=== PATIENT | female | born 1980 | race Caucasian/White ===

== ENCOUNTER 2020-11-12 10:55 | Emergency (ER) | payer OTHER, SELFPAY ==
[2020-11-12 11:20] VITALS: BP 140/85; PULSE 107; RESP 18; TEMP 36.8; O2SAT 99
--- NOTE | 2020-11-12 11:43 | PC.NURSE ---
provider was at bedside to do eye exam about 1133
--- NOTE | 2020-11-12 11:47 | ED.EYEPROB ---
HPI - Eye Problem General Chief complaint: Eye Problems Stated complaint: Bilateral eye pain Source: patient and RN notes reviewed Limitations: no limitations History of Present Illness HPI Narrative: The patient- a non-smoker/nondrinker on several meds inc AODM that wears eyeglasses- presents with lid discomfort. Patient states she has a couple day history of bilateral upper> lower lid itching and swelling. She has a prior history of urticaria/allergic rash with similar presentation a couple months ago for which she was treated with antihistamines, steroid. In similar fashion today, she had the onset of ear redness and itching with some interdigital, webspace itching at the onset. No known triggers , topical preparations -but she does have a pets and dog at home ; symptoms are mild, worse with scratching, minimally better with Benadryl . No cough, SOB, wheeze , hives, photophobia, injury, discharge, red eye, contact lens use-but she had lens use months ago. Patient advised to go to eye doctor if not improved; visual acuity is poor today as she does not have her spectacles Related Data Home Medications Medication Instructions Recorded Confirmed duloxetine mg PO 11/12/20 famotidine 11/12/20 levocetirizine mg 11/12/20 liraglutide [Victoza 2-Jim] mg SUBCUT 11/12/20 meloxicam 11/12/20 metformin mg PO 11/12/20 sitagliptin [Januvia] mg 11/12/20 Allergies Allergy/AdvReac Type Severity Reaction Status Date / Time milk Allergy Intermediate Unknown Verified 11/12/20 11:27 Penicillins Allergy Rash Verified 11/12/20 11:27 Review of Systems Review of Systems: Narrative: The patient has been informed that they may have pre-hypertension or Hypertension based on a BP reading in the department. I recommend that the patient call the primary care provider listed on their discharge instructions or a physician of their choice this week to arrange follow up for further evaluation of possible pre-hypertension or Hypertension General/Constitutional: No weight loss,fever Eyes: N0: Redness,discharge Ears/Nose/Throat: No: Epistaxis,ear discharge Respiratory: Denies: Hemoptysis Gastrointestinal: No Vomiting, Bleeding-rectal Skin: No Lumps, eruption Neurologic: No Focal Weakness,Sz Hematologic: Denies: Petechiae/Purpura Psychiatric: No: Suicida ideationl All Other Systems: Reviewed and Negative PMFSH Comments At time of signature, agree with nursing past medical, surgical, social and family history. There is no relevant family history pertinent to the presenting complaint Exam Narrative: Exam Narrative: General Appearance: Well appearing, Well nourished, No distress EYE: VA 20/200, PERRLA [id number] bilateral edema, EOMI, Lens normal), Normal corneas , anterior chamber deep, no conjunctiva injection Ears: External ear normal, Auditory canal normal Nose: Normal nose, Nares clear Mouth/Throat: Normal appearing, Normal lips Neck: Supple, No adenopathy Respiratory: Airway patent, No respiratory distress Skin: Warm, Dry Neurological: A&O x3, CN II-X intact Psychiatric: Normal mood, Normal affect Course Vital Signs Vital signs: Vital Signs Temperature 98.3 F 11/12/20 11:20 Pulse Rate 107 H 11/12/20 11:20 Respiratory Rate 18 11/12/20 11:20 Blood Pressure 140/85 11/12/20 11:20 Pulse Oximetry 99 11/12/20 11:20 Temperature 98.3 F 11/12/20 11:20 Pulse Rate 107 H 11/12/20 11:20 Respiratory Rate 18 11/12/20 11:20 Blood Pressure 140/85 11/12/20 11:20 Pulse Oximetry 99 11/12/20 11:20 Discharge Plan Discharge Clinical Impression: Blepharitis Qualifiers: Blepharitis type: unspecified type Laterality: bilateral Eyelid: unspecified eyelid Qualified Code(s): H01.003 - Unspecified blepharitis right eye, unspecified eyelid Patient Disposition: Home, Self-Care Condition: Stable Instructions: Blepharitis (ED) Additional Instructions: You may use OTC preps like C
== END 2020-11-12 12:00 | disposition home or self-care (01) ==
PROVIDERS: Emergency Provider Emergency Medicine; PCP Physician Assistant
DX: H01.006 Unspecified blepharitis left eye, unspecified eyelid (principal); H01.003 Unspecified blepharitis right eye, unspecified eyelid; J45.909 Unspecified asthma, uncomplicated; E11.9 Type 2 diabetes mellitus without complications
CPT/HCPCS: 99213; A9270; G0463

== ENCOUNTER → 2020-12-10 15:17 | Outpatient (CLI) | payer OTHER, SELFPAY ==
--- NOTE | ~2020-12-10 | MM_ITS ---
EXAMINATION: MM screening gregoria BI w loren HISTORY: Screening mammogram TECHNIQUE: Craniocaudal and mediolateral oblique 3-D tomosynthesis images were obtained and synthetic 2-D images were generated. CAD analysis was submitted and interpreted. COMPARISON: None, baseline BREAST PARENCHYMAL COMPOSITION: There are scattered areas of fibroglandular density. FINDINGS: RIGHT BREAST: An asymmetry is present in the subareolar aspect of the right breast on the mediolatera l oblique view. LEFT BREAST: There is no evidence of suspicious mass, calcification, or architectural distortion to s uggest malignancy. IMPRESSION: 1. Right breast asymmetry 2. Additional mammographic views and possible breast ultrasound are recommended to evaluate for malig jarrell and establish a baseline given that this is the first mammographic examination. BI-RADS Category 0: Incomplete: Needs additional imaging evaluation. Reviewed, dictated and finalized at location A. IMPRESSION: 1. Right breast asymmetry 2. Additional mammographic views and possible breast ultrasound are recommended to evaluate for malignancy and establish a baseline given that this is the fir st mammographic examination. BI-RADS Category 0: Incomplete: Needs additional imaging evaluation.
== END ==
PROVIDERS: PCP Physician Assistant; Visit Provider Obstetrics & Gynecology Gynecologic Oncology
DX: Z12.31 Encounter for screening mammogram for malignant neoplasm of breast (principal); R92.8 Other abnormal and inconclusive findings on diagnostic imaging of breast
CPT/HCPCS: 77063; 77067

== ENCOUNTER → 2021-01-07 09:47 | Outpatient (CLI) | payer OTHER, SELFPAY ==
--- NOTE | ~2021-01-07 | MMUS_ITS ---
EXAMINATION: MM diagnostic gregoria RT w loren, US breast RT limited HISTORY: Subareolar asymmetry of the right breast on screening mammogram TECHNIQUE: Additional 3-D tomosynthesis images of the right breast were performed and synthetic 2-D i mages were generated. CAD analysis was submitted and interpreted. High resolution limited right breas t ultrasound was performed. COMPARISON: 12/10/2020 FINDINGS: MAMMOGRAPHIC FINDINGS: No persistent asymmetry is identified with spot compression of the right breast. ULTRASOUND: There is no evidence of focal abnormal solid or cystic mass in the vicinity of the mammographic findi ng in question. IMPRESSION: 1. No mammographic or sonographic evidence of malignancy. 2. Recommend routine screening mammography in one year. BI-RADS Category 1: Negative Reviewed, dictated and finalized at location A. IMPRESSION: 1. No mammographic or sonographic evidence of malignancy. 2. Recommend routine screening mammography in one year. BI-RADS Category 1: Negative
== END ==
PROVIDERS: PCP Physician Assistant; Visit Provider Obstetrics & Gynecology Gynecologic Oncology
DX: R92.8 Other abnormal and inconclusive findings on diagnostic imaging of breast (principal)
CPT/HCPCS: 76642; 77061; 77065; G0279